=== PATIENT | female | born 1995 | race Caucasian/White ===

== ENCOUNTER 2021-05-19 17:21 | Emergency (ER) | payer OTHER ==
[~2021-05-19] VITALS: Ht 160 cm; Wt 100.0 kg
[2021-05-19 17:50] VITALS: TEMP 98.3
[2021-05-19] MEDS ORDERED: VITAMIN B-625 MG (18:25)
[2021-05-19] MEDS ORDERED: ASPIRIN 81M81 MG/TA2 PO (18:25)
[2021-05-19] MEDS ORDERED: PRENATAL TABLET PO (18:25)
[2021-05-19] MEDS ORDERED: ZOLOFT 50MG50 MG PO (18:25)
[2021-05-19] MEDS ORDERED: REGLAN 10MG10 MG/TAB (18:26)
[2021-05-19 18:52] LABS: BASO % 0.2 % (0.0-2.0); EOS # 0.1 K/mm3 (0.0-0.7); EOS % 0.5 % (0.0-4.0); GRAN # 6.9 K/mm3 (1.4-6.5); GRAN % 73.2 % (42.2-75.2); HEMOGLOBIN 12.4 g/dl (12.5-16.0); LYMPH # 1.8 K/mm3 (1.2-3.4); MEAN CELL VOLUME 89 fl (80.0-100.0); MEAN CORPUSCULAR HEMOGLOBIN 30 pg (27-31); MEAN CORPUSCULAR HGB CONC 34 g/dl (33.0-37.0); MEAN PLATELET VOLUME 11.2 fl (7.4-10.4); MONO # 0.7 K/mm3 (0.1-0.6); MONO % 6.9 % (1.7-9.3); PLATELET COUNT 242 K/mm3 (130-400); RED BLOOD COUNT 4.08 M/mm3 (4.10-5.30); REDCELL DISTRIBUTION WIDTH-CV 14.7 % (11.5-14.5)
[2021-05-19 18:53] LABS: HEMATOCRIT 36.2 % (37.0-47.0)
[2021-05-19 19:17] LABS: ALBUMIN 3.1 gm/dL (3.5-5.0); BILIRUBIN,TOTAL 0.3 mg/dL (0.2-1.2); CALCIUM 9.5 mg/dL (8.4-10.2); CREATININE, serum 0.71 mg/dL (0.57-1.11); POTASSIUM 3.3 mmol/L (3.5-4.5); TOTAL PROTEIN 6.6 gm/dL (6.2-8.1)
[2021-05-19 19:23] LABS: TROPONIN-I 0.012 ng/mL (0.00-0.033)
[2021-05-19 22:34] VITALS: BP 122/63; PULSE 84
== END 2021-05-19 22:36 | disposition home or self-care (01) ==
LOC: COL.ER 17:21
PROVIDERS: Nurse Practitioner
DX: O26.892 Other specified pregnancy related conditions, second trimester (principal); R07.9 Chest pain, unspecified; O99.342 Other mental disorders complicating pregnancy, second trimester; F41.9 Anxiety disorder, unspecified; F32.A Depression, unspecified; Z3A.20 20 weeks gestation of pregnancy; Z79.899 Other long term (current) drug therapy